=== PATIENT | male | born 1970 | race Caucasian/White ===

== ENCOUNTER 2019-11-03 11:14 | Emergency (ER) | payer MEDICAID ==
[~2019-11-03] VITALS: Ht 170.2 cm; Wt 86.6 kg
[2019-11-03 11:26] VITALS: BP 140/80
--- NOTE | 2019-11-03 11:29 | NUR ---
PT TO ER LOBBY, ALERT AND AWAKE
--- NOTE | 2019-11-03 11:50 | NUR ---
PT AMBULATED TO BED 11
[2019-11-03 11:53] VITALS: BP 140/80
--- NOTE | 2019-11-03 11:56 | NUR ---
49 YO M C/O RIGHT 4TH AND 5TH TOE PAIN AND SWELLING SINCE 2018. PT STATES 5/10 THROBBING PAIN, +D/C. DENIES NUMBNESS AND FEVER. PT STATES THAT THIS STARTED WHEN HE WORE SOCKS WHICH CAUSED ABRASIONS ON SKIN AND EVENTUALLY DEVELOPED INFECTION. PT APPLIES OTC ANTISEPTIC SPRAY. NO IMPROVEMENT NOTED. VSS. UPON INSPECTION, NOTED DIME-SIZED OPEN LESIONS ON BASE OF 4TH AND 5TH DIGITS. NO D/C OR BLEEDING NOTED. CR <3SECS. PATIENT POSITIONED IN BED COMFPRTABLY. ERMD MADE AWARE OF PT STATUS.
== END 2019-11-03 13:30 | disposition home or self-care (01) ==
LOC: MED 11:14
DX: L03.115 Cellulitis of right lower limb (principal); E11.9 Type 2 diabetes mellitus without complications
CPT/HCPCS: 99283